=== PATIENT | female | born 2000 | race Caucasian/White ===

== ENCOUNTER 2019-10-11 10:05 | Inpatient (IN) ==
[2019-10-11] MEDS ORDERED: BUTORPHANOL TARTRATE 2 MG/ML VIAL IV PRN (11:21)
[2019-10-11] MEDS ORDERED: OXYTOCIN/DEXTROSE 5%-WATER 30 UNITS/500 ML BAG IV ONE (11:21)
[2019-10-11] MEDS ORDERED: ONDANSETRON 4 MG TAB.RAPDIS PO PRN (11:21)
[2019-10-11] MEDS ORDERED: RINGER'S SOLUTION,LACTATED 1,000 ML IV ONE (11:21)
[2019-10-11 12:30] LABS: Cocaine Ur Negative (NEGATIVE); Urine Barbiturate Negative (NEGATIVE); Urine Benzodiazepines Negative (NEGATIVE); Urine Opiates Negative (NEGATIVE); Urine PCP Negative (NEGATIVE); Urine THC Negative (NEGATIVE)
[2019-10-11] MEDS ORDERED: fentaNYL CITRATE/PF 50 MCG/ML AMPUL IT SCH (14:30)
[2019-10-11] MEDS ORDERED: ONDANSETRON HCL/PF 2 MG/ML VIAL IV PRN (14:30)
[2019-10-11] MEDS ORDERED: NALOXONE HCL 1 MG/1 ML SYRG IV PRN (14:30)
[2019-10-11] MEDS ORDERED: BUPIVACAINE HCL/0.9 % NACL/PF 250 ML EP PRN (14:30)
--- NOTE | 2019-10-11 14:34 | HP ---
Chief Complaint - Chief Complaint Date of Service: 10/11/19 Time of Service: 14:23 Chief Complaint: Leaking fluid History of Present Illness: 19 yo at 39 2/7 weeks presents to L&D complaining of LOF around 0830 this am. She also complains of mild contractions. Denies n/v/f/c, vaginal bleeding or decreased FM. This complicated by asthma, h/o migraines, and h/o depression. Rh positive Rubella immune GBS negative Medical History (Last Reviewed 10/11/19 @ 14:30 by Michael Santiago DO) Bacterial vaginitis (Acute) Asthma (Chronic) Hx of migraines (Chronic) History of depression (Chronic) ADHD Onset Date: Unknown Asthma Onset Date: Unknown usually occurs when she is around dust Body piercing Onset Date: Unknown Migraine Onset Date: Unknown Obesity Onset Date: Unknown Pollen Allergy Onset Date: Unknown Scoliosis Onset Date: Unknown [place] Allergy Onset Date: Unknown Hives Tattoos Onset Date: Unknown Wasp Allergy Onset Date: Unknown Anaphylaxis Wears glasses Onset Date: Unknown Ketoacidosis Onset Date: ~2006 Depression Onset Date: Unknown Surgical History: Surgical History (Last Reviewed 10/11/19 @ 14:30 by Michael Santiago DO) History of tonsillectomy and adenoidectomy Onset Date: ~2001 Family History: Family History (Last Reviewed 10/11/19 @ 14:30 by Michael Santiago DO) Mother Diabetes Insulin Dependent Irritable bowel syndrome (IBS) Father Bipolar disorder Cancer Prostate Social History: (Last Updated 10/09/19 @ 14:17 by Michael Santiago DO) Social History: adopted: No retirement: No Marital status: Single lives independently: Yes household members: none number of children: 0 current occupational status: unemployed current occupational exposures/hazards: No Highest education level completed: high school graduate Sexually Active: Yes Service: No Tobacco: Smoking Status: Former smoker Alcohol: alcohol intake: current alcohol intake frequency: a few times a month details: No alcohol since + UPT Substance Use: substance use type: does not use Dietary Habits: caffeine: Yes Type: tea Exercise: frequency: does not exercise Dottie/Shinto: agree to transfusion: Yes Review Of Systems (GEN) - Review of Systems Generalized/Overall Review: Present: No Symptoms Reported EENTM: Present: No Symptoms Reported Respiratory: Present: No Symptoms Reported Cardiac: Present: No Symptoms Reported Abdominal: Present: No Symptoms Reported Genitourinary: Present: Other - leaking fluid, mild contractions Musculoskeletal: Present: No Symptoms Reported Neurological: Present: No Symptoms Reported Skin: Present: No Symptoms Reported Endocrine: Present: No Symptoms Reported Allergies/Adverse Reactions: Allergies Allergy/AdvReac Type Severity Reaction Status Date / Time Sulfa (Sulfonamide Allergy Hives Verified 10/09/19 13:54 Antibiotics) Home Medications: HOME MEDICATIONS albuterol sulfate 90 mcg/actuation breath activated powder inhaler 2 inh IH Q6H 02/27/19 [Last Taken Unknown] prenat.vits,juju,[id number] 1 tab PO DAILY 02/27/19 [Last Taken 10/09/19 08:00] epinephrine 0.3 mg/0.3 mL injection, auto-injector 0.3 mg IM Q10M PRN #1 ea 03/31/19 [Last Taken Unknown] Exam - Exam Constitutional: Present: Alert, Oriented x3, Cooperative ENT Exam: Present: hearing grossly normal Breasts: Present: Exam deferred Respiratory: Present: lungs clear, no respiratory distress Cardiovascular/Chest: Present: regular rate, rhythm Abdomen: Present: soft, nontender, no rebound tenderness, other - gravid /Rectal: Present: Other - Cervix 4/80/-2. Vaginal pooling, nitrazine swab positive. Extremity: Present: no pedal edema, no calf tenderness Skin Exam: Present: normal color, warm/dry, no cyanosis Lymphatic: Present: no adenopathy Neurologic: Present: alert, normal mood/affect, oriented x 3 Appearance: Present: appropriate appearance, appropriate insight Eye contact: Present: cooperative, good eye contact, normal speech Thoughts: Present: normal thought pattern, normal mood /affect Diagnostic Studies: Laboratory Results Urine Opiates Screen Negative (NEGATIVE) 10/11/19 12:05 Barbiturate Screen Negative (NEGATIVE) 10/11/19 12:05 Ur Phencyclidine Scrn Negative (NEGATIVE) 10/11/19 12:05 Urine Amphetamine Negative (NEGATIVE) 10/11/19 12:05 U Benzodiazepines Scrn Negative (NEGATIVE) 10/11/19 12:05 Urine Cocaine Screen Negative (NEGATIVE) 10/11/19 12:05 Urine Marijuana (THC) Negative (NEGATIVE) 10/11/19 12:05 Assessment/Plan - Assessment/Plan (1) Labor established Assessment: Admit for routine management of labor. Pitocin PRN. Epidural PRN. Problem: Acute (2) SROM (spontaneous rupture of membranes) Problem: Acute (3) Asthma Problem: Chronic Qualifiers: Asthma severity: mild Asthma persistence: intermittent Asthma complication type: uncomplicated Qualified Code(s): J45.20 - Mild intermittent asthma, uncomplicated (4) Hx of migraines Problem: Chronic (5) History of depression Problem: Chronic Non Stress Test - Status NST: 10/11/19 Reason for NST: threatened labor Monitor Mode: External Acceleration: Present Decelerations: None Variability: Moderate 6-25 bpm Baseline Heart Rate: 140 Activity: reactive Reactive: 15 by 15 - Assessment Assessment & Plan: labor with SROM - Plan NST Plan: Admit to L&D
--- NOTE | 2019-10-11 15:25 | ANES ---
Anesthesia Pre Procedure Eval Vitals/Labs: T temperature 36.4 C, blood pressure 134/82, heart rate 95, respiratory rate 20, SaO2 97. HOME MEDICATIONS albuterol sulfate 90 mcg/actuation breath activated powder inhaler 2 inh IH Q6H 02/27/19 [Last Taken Unknown] prenat.vits,juju,[id number] 1 tab PO DAILY 02/27/19 [Last Taken 10/09/19 08:00] epinephrine 0.3 mg/0.3 mL injection, auto-injector 0.3 mg IM Q10M PRN #1 ea 03/31/19 [Last Taken Unknown] Allergies/Adverse Reactions: Allergies Allergy/AdvReac Type Severity Reaction Status Date / Time Sulfa (Sulfonamide Allergy Hives Verified 10/09/19 13:54 Antibiotics) - Planned Procedure Planned Procedure: labor Medication List Reviewed:: Yes Allergies Verified: Yes Medical History (Last Reviewed 10/11/19 @ 15:24 by Anderson Santiago CRNA) Bacterial vaginitis (Acute) Asthma (Chronic) Hx of migraines (Chronic) History of depression (Chronic) ADHD Onset Date: Unknown Asthma Onset Date: Unknown usually occurs when she is around dust Body piercing Onset Date: Unknown Migraine Onset Date: Unknown Obesity Onset Date: Unknown Pollen Allergy Onset Date: Unknown Scoliosis Onset Date: Unknown [place] Allergy Onset Date: Unknown Hives Tattoos Onset Date: Unknown Wasp Allergy Onset Date: Unknown Anaphylaxis Wears glasses Onset Date: Unknown Ketoacidosis Onset Date: ~2006 Depression Onset Date: Unknown Surgical History (Last Reviewed 10/11/19 @ 15:24 by Anderson Santiago CRNA) History of tonsillectomy and adenoidectomy Onset Date: ~2001 Family History (Last Reviewed 10/11/19 @ 15:25 by Anderson Santiago CRNA) Mother Diabetes Insulin Dependent Irritable bowel syndrome (IBS) Father Bipolar disorder Cancer Prostate - Family Anesthesia History Family History:: no untoward family reactions to anesthesia, no familial ble eding tendencies, no family history of clotting disorders, no family history of premature - Airway/Neck/Teeth Within Normal Limits:: Yes Teeth Condition: intact Neck Exam: full range of motion Mallampatti Score: 2 Thyromental (T-M) distance: > 6 cm Mandibulo Hyoid distance: > 3 cm - Respiratory Respiratory Physical: lungs clear Smoking Status: Never smoker Sleep Apnea currently treated: No Sleep Apnea by current assessment: No - Cardiovascular Tolerate Activity: Fair Heart Sounds: S1 & S2, Regular - Anesthesia Assessment and Plan ASA Class: PS, II, E Anesthesia Type Plan: Epidural - CSE for labor analgesia
--- NOTE | 2019-10-11 15:44 | ANES ---
Post Anesthesia Discharge - Transfer of Care Transfer of Care handoff given to nurse: Yes - Discharge from PACU Discharge from PACU when meets criteria: Yes - Comfortable now.
--- NOTE | 2019-10-11 15:45 | ANES ---
Anesthesia Procedure Note Procedure Note: ANESTHESIA PROCEDURE NOTE Date of Procedure: 10/11/2019 Time of procedure: 1525. Performed by: LONG Orozco CRNA, MSN Mobile Phlebotomist: Anne Young RN. Preprocedure diagnosis: Active labor, labor pain. Post procedure diagnosis: Same. Procedure:Epidural for labor analgesia L3-4. Indications: Labor pain. Findings: See below. Details of the procedure: The patient was placed on the side of the bed in sitting positionand prepped with DuraPrep then draped in a sterile fashion. Lidocaine 1% was infiltrated to the skin and subcutaneous tissues at the level of the L3-4 interspace. Of note, Donna has a quite obvious scoliosis which is apparently symptomatic and makes the anatomical assessment challenging, an 18- gauge Touhy needle was used to approach the epidural space with loss of resistance technique. Once loss of resistance was achieved a 27-gauge spinal needle was passed through the epidural needle and CSF was contacted. After CSF returned, 20 mcg of fentanyl was injected in the spinal needle was removed the epidural catheter was then threaded approximately 4 cm in the epidural needle was removed. The catheter was taped in place and after careful aspiration 3 mL of 1.5% lidocaine with 1-200,000 epinephrine was injected without change in maternal heart rate or sensorium. . EBL: Minimal. Fluids: N/A. Specimen: N/A. Post procedure condition: The patient tolerated the procedure well with good relief. No complications were noted. Thank you for this consultation. Anderson Santiago CRNA, LONG, MSN
--- NOTE | 2019-10-11 15:50 | ANES ---
Post Anesthesia Assessment - Vital Signs Airway Patency: Normal - Mental Status Level Of Consciousness: Awake, Alert, Appropriate - Pain Level Pain Score: 0 - N/V Assessment Nausea/Vomiting Presence: None Dehydration:: No
[2019-10-11] MEDS: DEXTROSE 5%-LACTATED RINGERS 1,000 ML IV PRN (16:07)
[2019-10-11] MEDS ORDERED: ALBUTEROL SULFATE 2.5 MG/0.5 ML VIAL.NEB IH PRN (18:53)
[2019-10-11] MEDS ORDERED: ALBUTEROL SULFATE 2.5 MG/0.5 ML VIAL.NEB IH SCH (19:00)
[2019-10-12] MEDS: DEXTROSE 5%-LACTATED RINGERS 1,000 ML IV PRN (00:45)
[2019-10-12] MEDS ORDERED: BISACODYL 10 MG SUPP.RECT RC PRN (01:11)
[2019-10-12] MEDS ORDERED: oxyCODONE HCL/ACETAMINOPHEN 1 TAB TABLET PO PRN (01:11)
[2019-10-12] MEDS ORDERED: GLYCERIN/WITCH HAZEL LEAF 40 APPL BOX TP PRN (01:11)
[2019-10-12] MEDS ORDERED: SENNOSIDES 8.6 MG TABLET PO PRN (01:11)
[2019-10-12] MEDS ORDERED: HYDROCORTISONE 30 APPL TUBE TP PRN (01:11)
[2019-10-12] MEDS ORDERED: ACETAMINOPHEN 325 MG TABLET PO PRN (01:11)
[2019-10-12] MEDS ORDERED: OXYTOCIN/DEXTROSE 5%-WATER 30 UNITS/500 ML BAG IV ONE (01:11)
[2019-10-12] MEDS ORDERED: BENZOCAINE/MENTHOL 81 SPRAY CAN TP PRN (01:11)
--- NOTE | 2019-10-12 01:17 | OR ---
Operative Report - Dictated Report Narrative: Spontaneous vaginal delivery of viable male at 0024 on 10/12/2019 with Apgars 8 and 9, weighing 3072 g and CORA position with nuchal cord x1 and right hand presentation at face. Cord clamping delayed approximately 1 minute Placenta delivered complete, intact, with three vessel cord Estimated blood loss: 200 mL Anesthesia: Epidural Lacerations: Superficial second-degree vaginal laceration repaired with 3-0 Vicryl Rapide History for History for Definition: * The number of deliveries resulting in a live the patient experienced prior to current hospitalization * The previous delivery of live twins or any live multiple gestation is considered one live event. *If primagravida or nulliparous is documented select zero for the number of previous live births. Live Events: Live Events: 0
[2019-10-12] MEDS: IBUPROFEN 800 MG TABLET PO PRN ×3 (01:24→16:34)
[2019-10-12] MEDS ORDERED: PRENATAL VITS96/IRON FUM/FOLIC 1 TAB TABLET PO SCH (09:00)
[2019-10-12] MEDS: DOCUSATE SODIUM 100 MG CAPSULE PO SCH ×2 (10:13→20:01)
[2019-10-12] MEDS: FERROUS SULFATE 325 MG TABLET PO SCH ×2 (10:14→16:34)
[2019-10-13] MEDS: IBUPROFEN 800 MG TABLET PO PRN (03:24)
--- NOTE | 2019-10-13 09:07 | PN ---
Subjective - Date and Time Seen Date: 10/13/19 Time: 09:07 Objective - Vitals Vitals: Last Vital Signs Temp 36.6 C 10/13/19 03:35 Pulse 65 10/13/19 01:34 Resp 18 10/13/19 01:34 BP 114/70 10/13/19 01:34 Pulse Ox 97 10/13/19 01:34 Patient denies complaints. Lochia wnl abdomen - soft, nontender Uterus -firm, at umbilicus - 1 no calf tenderness Impression: day #1 - s/p spontaneous vaginal delivery. Plan: Continue routine care Cauti Physician Documentation - Urinary Catheter Management Urethral (Parekh) Date of Insertion: 10/11/19 Time of Insertion: 16:00 Date of Removal: 10/12/19 Time of Removal: 00:30 Assessment/Plan - Problems/Diagnosis (1) Labor established Problem: Acute (2) SROM (spontaneous rupture of membranes) Problem: Acute (3) Asthma Problem: Chronic Qualifiers: Asthma severity: mild Asthma persistence: intermittent Asthma complication type: uncomplicated Qualified Code(s): J45.20 - Mild intermittent asthma, uncomplicated (4) Hx of migraines Problem: Chronic (5) History of depression Problem: Chronic
[2019-10-13] MEDS: FERROUS SULFATE 325 MG TABLET PO SCH ×2 (09:17→17:54)
[2019-10-13] MEDS: DOCUSATE SODIUM 100 MG CAPSULE PO SCH ×2 (09:17→20:09)
[2019-10-14] MEDS: DOCUSATE SODIUM 100 MG CAPSULE PO SCH (08:37)
[2019-10-14] MEDS: FERROUS SULFATE 325 MG TABLET PO SCH ×2 (08:37→17:28)
[2019-10-14] MEDS: IBUPROFEN 800 MG TABLET PO PRN (11:00)
[2019-10-14 12:06] VITALS: BP 125/53
--- NOTE | 2019-10-14 19:19 | PN ---
Subjective - Date and Time Seen Date: 10/14/19 Time: 19:19 Objective - Vitals Vitals: Last Vital Signs Temp 36.8 C 10/14/19 12:04 Pulse 90 10/14/19 12:04 Resp 18 10/14/19 12:04 BP 125/53 10/14/19 12:04 Pulse Ox 98 10/14/19 12:04 Patient denies complaints. Breast-feeding Lochia wnl abdomen - soft, nontender Uterus -firm, at umbilicus - 2 no calf tenderness Impression: day #2 - s/p spontaneous vaginal delivery. Baby stained for bilirubin lights. Plan: Routine discharge instructions. Board for baby Cauti Physician Documentation - Urinary Catheter Management Urethral (Parekh) Date of Insertion: 10/11/19 Time of Insertion: 16:00 Date of Removal: 10/12/19 Time of Removal: 00:30 Assessment/Plan - Problems/Diagnosis (1) Labor established Problem: Acute (2) SROM (spontaneous rupture of membranes) Problem: Acute (3) Asthma Problem: Chronic Qualifiers: Asthma severity: mild Asthma persistence: intermittent Asthma complication type: uncomplicated Qualified Code(s): J45.20 - Mild intermittent asthma, uncomplicated (4) Hx of migraines Problem: Chronic (5) History of depression Problem: Chronic
== END 2019-10-14 23:40 | disposition home or self-care (01) | DRG 807 ==
LOC: OBCLINIC 10:05 → OB 10:29
PROVIDERS: ADMIT Obstetrics & Gynecology; ATTEND Obstetrics & Gynecology
CPT/HCPCS: 59025; 80307